=== PATIENT | male | born 1960 | race Caucasian/White ===

== ENCOUNTER 2017-02-05 22:39 | Observation (INO) | payer SELFPAY ==
[2017-02-05 22:39] VITALS: BMI 37.1
[2017-02-05] MEDS ORDERED: Sodium Chloride 0.9% 1,000 ML IV ONE (23:20)
[2017-02-05] MEDS ORDERED: Sodium Chloride 0.9% 1,000 ML ONE (23:24)
--- NOTE | 2017-02-05 23:28 | C.PDOC ---
History Of Present Illness Patient c/o sudden onset of left flank pain this afternoon. The pain radiates to his LLQ and testicle and is associated with urinary discomfort. He had history of similar pain in the past and was diagnosed with ? renal colic. He denies associated nausea or vomiting. His bowel movements have been normal. He has no fever or chills and had a normal appetite today. Time Seen by Provider: 02/05/17 23:17 Chief Complaint (Nursing): Abdominal Pain History Per: Patient History/Exam Limitations: no limitations Current Symptoms Are (Timing): Still Present Severity: Moderate Location Of Pain/Discomfort: LLQ Quality Of Discomfort: "Pain" Associated Symptoms: Back Pain (left flank). denies: Fever, Chills, Nausea, Vomiting, Diarrhea Exacerbating Factors: denies: Movement Past Medical History Vital Signs: Last Vital Signs Temp 97.5 F L 02/05/17 22:55 Pulse 80 02/05/17 22:55 Resp 20 02/05/17 22:55 BP 149/97 H 02/05/17 22:55 Pulse Ox 100 02/06/17 00:19 - Medical History PMH: No Chronic Diseases Surgical History: No Surg Hx Family History: States: Unknown Family Hx - Social History Hx Tobacco Use: No Hx Alcohol Use: Yes Hx Substance Use: No - Immunization History Hx Tetanus Toxoid Vaccination: No Hx Influenza Vaccination: No Hx Pneumococcal Vaccination: No Review Of Systems Except As Marked, All Systems Reviewed And Found Negative. Genitourinary: Positive for: Dysuria, Other (left flank pain) Physical Exam - Physical Exam Appears: In Acute Distress (appears uncomfortable) Skin: Normal Color, Warm, Dry Oral Mucosa: Moist Chest: Symmetrical Cardiovascular: Rhythm Regular Respiratory: Normal Breath Sounds Gastrointestinal/Abdominal: Soft, No Tenderness, No Distention, No Guarding, No Rebound Back: Normal Inspection, No CVA Tenderness Neurological/Psych: Oriented x3, Normal Speech, Normal Cognition ED Course And Treatment - Laboratory Results Result Diagrams: 02/05/17 23:24 02/05/17 23:24 Lab Interpretation: Abnormal (urine + RBC,) O2 Sat by Pulse Oximetry: 100 (room air ) Pulse Ox Interpretation: Normal - CT Scan/US CT ABDOMEN AND PELVIS W/O IV CONTRAST Other Rad Studies (CT/US): Read By Radiologist, Radiology Report Reviewed CT/US Interpretation: EXAM: CT Abdomen and Pelvis Without Intravenous Contrast. CLINICAL HISTORY: 56 years old, male; Pain; Abdominal pain; Generalized; Additional info: Abd pain. TECHNIQUE: Axial computed tomography images of the abdomen and pelvis without intravenous contrast. This. CT exam was performed using one or more of the following dose reduction techniques: automated. exposure control, adjustment of the mA and/or kV according to patient size, and/or use of iterative. reconstruction technique. Coronal and sagittal reformatted images were created and reviewed. COMPARISON: No relevant prior studies available. FINDINGS: Lower thorax: The bilateral lung bases are clear. ABDOMEN: Liver: The liver is enlarged, and demonstrates diffuse fatty infiltration. Gallbladder and bile ducts: A single calcified stone is identified within the gallbladder, which is. decompressed and otherwise unremarkable. No intra-extrahepatic biliary ductal dilation. Pancreas : Limited evaluation secondary to the lack of intravenous contrast. Spleen: No acute findings. Adrenals: No acute findings. Kidneys and ureters: Moderate left sided hydroureteronephrosis extending to the mid left ureter there. is 6 x 14 mm stone is identified. Multiple additional nonobstructing stones are detected bilaterally,. measuring 2 and 3 mm in size. Rounded foci of fluid attenuation are identified primarily within the left. kidney, statistically representing cysts. Moderate left-sided perinephric inflammatory change is. present. PELVIS: Bladder: No acute findings. Reproductive: No acute findings. Appendix: The air filled appendix is of normal-caliber (series 2, image 66; series 601, image 55). ABDOMEN and PELVIS: Stomach and bowel: No acute findings. Peritoneum: No acute findings. Lymph nodes: Limited evaluation without intravenous contrast. Vasculature: No aortic aneurysm. Bones: No acute fracture. IMPRESSION: Moderate left sided Reevaluation Time: 00:20 Reassessment Condition: Improved (after Toradol.) - Physician Consult Information Time Consulting Physician Contacted: 00:20 Outcome Of Conversation: Case discussed with Dr Engel and Dr Lopez. Patient to remain in the hospital tonight to prep for a stent tomorrow. Disposition - Disposition Disposition: HOSPITALIZED Disposition Time: 00:21 Condition: IMPROVED - POA Present On Arrival: None - Clinical Impression Clinical Impression: Renal colic on left side
[2017-02-05 23:29] LABS: BASO # 0.1 K/uL (0.0-0.2); BASO % 1.1 % (0.0-2.0); EOS # 0.3 K/uL (0.0-0.7); HEMATOCRIT 46.6 % (35.0-51.0); LYMPH # 1.9 K/uL (1.0-4.3); LYMPH % 19.5 % (20.0-40.0); MEAN CELL VOLUME 81.2 fL (80.0-94.0); MEAN CORPUSCULAR HEMOGLOBIN 26.8 pg (27.0-31.0); MEAN PLATELET VOLUME 7.6 fL (7.2-11.7); MONO # 0.7 K/uL (0.0-0.8); MONO % 6.8 % (0.0-10.0); NRBC % 0.1 % (0.0-2.0); RED CELL DISTRIBUTION WIDTH 13.7 % (11.5-14.5); WHITE BLOOD COUNT 9.6 K/uL (4.8-10.8)
[2017-02-05 23:36] LABS: CHLORIDE 99 mmol/L (98-107); POTASSIUM 4.3 mmol/L (3.6-5.2); SODIUM 134 mmol/L (132-148)
[2017-02-05 23:38] LABS: BILIRUBIN,TOTAL 0.6 mg/dL (0.2-1.3); CARBON DIOXIDE 25 mmol/L (22-30); GFR AFRICAN-AMERICAN > 60
[2017-02-05 23:39] LABS: ALB/GLOB RATIO 1.2 (1.0-2.1); ALKALINE PHOSPHATASE 77 U/L (38-126); ALT/SGPT 38 U/L (21-72); AST/SGOT 21 U/L (17-59); BLOOD UREA NITROGEN 17 mg/dL (9-20); CALCIUM 8.4 mg/dl (8.6-10.4); GLUCOSE,RANDOM 215 mg/dL (75-110); TOTAL PROTEIN 7.2 g/dL (6.3-8.3)
[2017-02-05 23:48] LABS: RBC URINE 39 /hpf (0-3); URINE BACTERIA OCC (<OCC); URINE BILIRUBIN NEGATIVE (NEGATIVE); URINE BLOOD 2+ (NEGATIVE); URINE CALCIUM OXALATE CRYSTALS RARE /hpf (<OCC); URINE COLOR Yellow (YELLOW); URINE GLUCOSE (UA) 3+ mg/dL (Normal); URINE KETONE NEGATIVE (NEGATIVE); URINE LEUKOCYTE ESTERASE NEG Leu/uL (Negative); URINE PROTEIN 1+ mg/dL (NEGATIVE); URINE UROBILINOGEN NORMAL mg/dL (0.2-1.0); WBC URINE 5 /hpf (0-5)
--- NOTE | 2017-02-05 23:58 | CT ---
EXAM: CT Abdomen and Pelvis Without Intravenous Contrast CLINICAL HISTORY: 56 years old, male; Pain; Abdominal pain; Generalized; Additional info: Abd pain TECHNIQUE: Axial computed tomography images of the abdomen and pelvis without intravenous contrast. This CT exam was performed using one or more of the following dose reduction techniques: automated exposure control, adjustment of the mA and/or kV according to patient size, and/or use of iterative reconstruction technique. Coronal and sagittal reformatted images were created and reviewed. COMPARISON: No relevant prior studies available. FINDINGS: Lower thorax: The bilateral lung bases are clear. ABDOMEN: Liver: The liver is enlarged, and demonstrates diffuse fatty infiltration. Gallbladder and bile ducts: A single calcified stone is identified within the gallbladder, which is decompressed and otherwise unremarkable. No intra-extrahepatic biliary ductal dilation. Pancreas: Limited evaluation secondary to the lack of intravenous contrast. Spleen: No acute findings. Adrenals: No acute findings. Kidneys and ureters: Moderate left sided hydroureteronephrosis extending to the mid left ureter there is 6 x 14 mm stone is identified. Multiple additional nonobstructing stones are detected bilaterally, measuring 2 and 3 mm in size. Rounded foci of fluid attenuation are identified primarily within the left kidney, statistically representing cysts. Moderate left-sided perinephric inflammatory change is present. PELVIS: Bladder: No acute findings. Reproductive: No acute findings. Appendix: The air filled appendix is of normal-caliber (series 2, image 66; series 601, image 55). ABDOMEN and PELVIS: Stomach and bowel: No acute findings. Peritoneum: No acute findings. Lymph nodes: Limited evaluation without intravenous contrast. Vasculature: No aortic aneurysm. Bones: No acute fracture. IMPRESSION: Moderate left sided hydroureteronephrosis extending to a 6 x 14 mm stone in the mid left ureter, as detailed above.
--- NOTE | 2017-02-06 00:17 | CP.PCM.HP ---
History of Present Illness - History of Present Illness History of Present Illness: CC: Left sided abdominal pain HPI: 56 year old male PMHx nephrolithiasis and DM2 presenting with LLQ abdominal pain radiating to his testicles and back that started the afternoon of admission. Patient has had 2 prior episodes of nephrolithais- one in 2013 in [place] for which he was hospitalized and treated with medications, and one 4 days ago for which he was sent home and pain resolved. Patient reports the pain was 10/10 and a burning pain and "hard pain" for which he tried ASA which did not help. He denied any alleviating/exacerbating factors. Patient denied any urinary complaints and denied hematuria, dysuria, burning on urination. He did admit to nausea and two episodes of nonbloody nonblious emesis which was yellow in color with food contents. Patient states the pain is better when I saw him and rated it 5/10 after receiving toradol in the ER. He denied any bowel/ bladder complaints. Patient denied any fever, chills, headache, dizziness, weakness, change in vision/jearing, chest pain, palpitations, SOB, cough, bowel/ bladder complaints, pain /swelling in legs bilaterally, rash, bruising, bleeding , recent travel, recent sickness, weight changes, appetite changes. 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 Toradol for pain and NS bolus. UA 2+ blood, 1+ protein, 3+ glucose, 39 RBC, +caclium oxalate crystal. Labs drawn. Present on Admission - Present on Admission Any Indicators Present on Admission: Yes History of Uncontrolled Diabetes: Yes Review of Systems - Constitutional Constitutional: As Per HPI. absent: Chills, Fever, Headache, Weight Gain, Weight Loss, Weakness - EENT Eyes: As Per HPI. absent: Change in Vision Ears: As Per HPI. absent: Tinnitus, Dizziness Nose/Mouth/Throat: As Per HPI. absent: Nasal Discharge, Sore Throat - Cardiovascular Cardiovascular: As Per HPI. absent: Chest Pain, Diaphoresis, Dyspnea, Dyspnea on Exertion, Edema, Leg Edema, Pedal Edema - Respiratory Respiratory: As Per HPI. absent: Cough, Dyspnea, Dyspnea on Exertion, Chest Congestion - Gastrointestinal Gastrointestinal: As Per HPI, Abdominal Pain, Nausea, Vomiting (x 2). absent: Constipation, Diarrhea, Dysphagia, Heartburn, Hematemesis, Hematochezia, Melena - Genitourinary Genitourinary: As Per HPI, Flank Pain (left sided), Hx Renal/Bladder Calculi. absent: Change in Urinary Stream, Difficulty Urinating, Dysuria, Hematuria, Pyuria, Nocturia, Urinary Incontinence, Urinary Frequency, Urinary Urgency, Freq UTI, Hx /Renal Surgery - Musculoskeletal Musculoskeletal: As Per HPI, Back Pain. absent: Joint Swelling, Muscle Cramps, Numbness, Tingling - Integumentary Integumentary: As Per HPI. absent: Dry Skin, Rash - Neurological Neurological: As Per HPI. absent: Dizziness, Numbness, Headaches, Tingling, Weakness - Psychiatric Psychiatric: As Per HPI. absent: Anxiety, Depression - Endocrine Endocrine: As Per HPI. absent: Palpitations, Polydipsia, Polyphagia, Polyuria - Hematologic/Lymphatic Hematologic: As Per HPI. absent: Easy Bleeding, Easy Bruising, Lymphadenopathy Past Patient History - Infectious Disease Hx of Infectious Diseases: None - Past Social History Smoking Status: Heavy Smoker > 10 Cigarettes Daily - ENDOCRINE/METABOLIC Hx Diabetes Mellitus Type 1: Yes - PSYCHIATRIC Hx Substance Use: No - ANESTHESIA Hx Anesthesia: No Meds Allergies/Adverse Reactions: Allergies Allergy/AdvReac Type Severity Reaction Status Date / Time No Known Allergies Allergy Verified 09/28/15 18:18 Physical Exam - Constitutional Appears: Non-toxic, No Acute Distress - Head Exam Head Exam: ATRAUMATIC, NORMAL INSPECTION, NORMOCEPHALIC - Eye Exam Eye Exam: EOMI, Normal appearance, PERRL. absent: Conjunctival injection, Scleral icterus Pupil Exam: NORMAL ACCOMODATION - ENT Exam ENT Exam: Mucous Membranes Moist - Neck Exam Neck exam: Positive for: Normal Inspection. Negative for: Lymphadenopathy, Tenderness, Thyromegaly - Respiratory Exam Respiratory Exam: Decreased Breath Sounds (secondary to body habitus), Clear to Auscultation Bilateral, NORMAL BREATHING PATTERN. absent: Accessory Muscle Use , Prolonged Expiratory Phase, Rales, Rhonchi, Wheezes, Respiratory Distress - Cardiovascular Exam Cardiovascular Exam: REGULAR RHYTHM, RRR, +S1, +S2. absent: Systolic Murmur - GI/Abdominal Exam GI & Abdominal Exam: Normal Bowel Sounds, Soft, Tenderness (L > R to palpation) . absent: Diminished Bowel Sounds, Firm, Rigid - Rectal Exam Rectal Exam: Deferred - Extremities Exam Extremities exam: Positive for: normal capillary refill, normal inspection, pedal edema (trace b/l), pedal pulses present. Negative for: tenderness - Back Exam Back exam: CVA tenderness (L), CVA tenderness (R) (L > R), NORMAL INSPECTION, tenderness (LBP L > R). absent: rash noted - Neurological Exam Neurological exam: Alert, CN II-XII Intact, Oriented x3 - Psychiatric Exam Psychiatric exam: Normal Affect, Normal Mood - Skin Skin Exam: Dry, Intact, Normal Color, Warm Results - Vital Signs Recent Vital Signs: Last Vital Signs Temp 97.5 F L 02/05/17 22:55 Pulse 80 02/05/17 22:55 Resp 20 02/05/17 22:55 BP 149/97 H 02/05/17 22:55 Pulse Ox 100 02/06/17 00:14 - Labs Result Diagrams: 02/05/17 23:24 02/05/17 23:24 Labs: Laboratory Results - last 24 hr 02/05/17 02/05/17 02/05/17 23:24 23:24 23:24 WBC 9.6 RBC 5.73 Hgb 15.4 Hct 46.6 MCV 81.2 MCH 26.8 L MCHC 33.0 RDW 13.7 Plt Count 264 MPV 7.6 Neut % (Auto) 69.6 Lymph % (Auto) 19.5 L [place] % (Auto) 6.8 Eos % (Auto) 3.0 Baso % (Auto) 1.1 Neut # 6.7 Lymph # 1.9 [place] # 0.7 Eos # 0.3 Baso # 0.1 Sodium 134 Potassium 4.3 Chloride 99 Carbon Dioxide 25 Anion Gap 15 BUN 17 Creatinine 1.1 Est GFR ( Amer) > 60 Est GFR (Non-Af Amer) > 60 Random Glucose 215 H Calcium 8.4 L Total Bilirubin 0.6 AST 21 ALT 38 Alkaline Phosphatase 77 Total Protein 7.2 Albumin 3.9 Globulin 3.3 Albumin/Globulin Ratio 1.2 Urine Color Yellow Urine Clarity Hazy Urine pH 5.0 Ur Specific [place] 1.025 Urine Protein 1+ H Urine Glucose (UA) 3+ H Urine Ketones Negative Urine Blood 2+ H Urine Nitrate Negative Urine Bilirubin Negative Urine Urobilinogen Normal Ur Leukocyte Esterase Neg Urine WBC (Auto) 5 Urine RBC (Auto) 39 H Ur Squamous Epith Cells 1 Calcium Oxalate Crystal Rare Urine Bacteria Occ H Assessment & Plan - Assessment and Plan (Free Text) Assessment: 56 year old male PMHx nephrolithiasis and DM2 presenting with LLQ abdominal pain radiating to his testicles and back that started the afternoon of admission Plan: Nephrolithiasis -CT abd/pelvis showing moderate L sided hydroureternoephrosis extending to a 6 x 14mm stone in mid left ureter. -UA 2+ blood, 1+ protein, 3+ glucose, 39 RBC, +caclium oxalate crystal -NS @ 150cc/hr -Rocephin 1gm IVPB daily -Flomax 0.4mg po daily -f/u AM labs -EKG NSR @ 69bpm -f/u CXR for preop clearance -strain urine for calculus PRN -NPO for possible OR in the AM -Urology: Dr. Lopez Hx of DM2 -Accucheck ACHS -hold RISS as patient is NPO -f/u HgbA1c -f/u lipid panel PPX -SCDs -Protonix 40mg ivp daily -hold VTE ppx for possible OR in the AM -NPO Plan discussed with Dr. Toro Izaguirre PGY1
[2017-02-06] MEDS ORDERED: Sodium Chloride 0.9% 1,000 ML IV SCH (01:30)
[2017-02-06] MEDS ORDERED: cefTRIAXone IV 1 gm in Dextros 50 ML IVPB ONE (01:44)
[2017-02-06] MEDS ORDERED: Sodium Chloride 0.9% 1,000 ML ONE (01:44)
[2017-02-06] MEDS ORDERED: (Novolog) Insulin Aspart, Recombinant 100 u/ml 10 ml vial SC SCH (07:30)
[2017-02-06 07:33] LABS: BASO # 0.1 K/uL (0.0-0.2); BASO % 0.8 % (0.0-2.0); EOS # 0.3 K/uL (0.0-0.7); EOS % 3.6 % (0.0-4.0); LYMPH # 2.5 K/uL (1.0-4.3); LYMPH % 29.9 % (20.0-40.0); MEAN CELL VOLUME 80.6 fL (80.0-94.0); MEAN CORPUSCULAR HEMOGLOBIN 27.2 pg (27.0-31.0); MEAN CORPUSCULAR HGB CONC 33.8 g/dL (33.0-37.0); MEAN PLATELET VOLUME 7.7 fL (7.2-11.7); MONO # 0.7 K/uL (0.0-0.8); MONO % 8.6 % (0.0-10.0); RED CELL DISTRIBUTION WIDTH 13.4 % (11.5-14.5); WHITE BLOOD COUNT 8.5 K/uL (4.8-10.8)
[2017-02-06 08:00] LABS: CHLORIDE 102 mmol/L (98-107); POTASSIUM 4.1 mmol/L (3.6-5.2); SODIUM 136 mmol/L (132-148)
[2017-02-06 08:02] LABS: ALB/GLOB RATIO 1.1 (1.0-2.1); AST/SGOT 19 U/L (17-59); BILIRUBIN,TOTAL 0.6 mg/dL (0.2-1.3); BLOOD UREA NITROGEN 21 mg/dL (9-20); CARBON DIOXIDE 25 mmol/L (22-30); CHOLESTEROL 203 mg/dL (0-199); GFR AFRICAN-AMERICAN > 60
[2017-02-06 08:03] LABS: ALKALINE PHOSPHATASE 60 U/L (38-126); ALT/SGPT 31 U/L (21-72); CALCIUM 7.5 mg/dl (8.6-10.4); GLUCOSE,RANDOM 136 mg/dL (75-110); MAGNESIUM 1.8 mg/dL (1.6-2.3); PHOSPHOROUS 3.2 mg/dL (2.5-4.5)
--- NOTE | 2017-02-06 09:11 | RAD ---
HISTORY: preop COMPARISON: 08/20/2015 TECHNIQUE: Chest PA and lateral FINDINGS: LUNGS: No active pulmonary disease. PLEURA: No significant pleural effusion identified. No pneumothorax apparent. CARDIOVASCULAR: Normal. OSSEOUS STRUCTURES: No significant abnormalities. VISUALIZED UPPER ABDOMEN: Normal. OTHER FINDINGS: None. IMPRESSION: No active disease.
--- NOTE | 2017-02-06 12:36 | CP.PCM.PN ---
Addendum entered and electronically signed by Asmita Donnelly DO, DO 15:33: Patient low cardiac risk for procedure from medical standpoint. Addendum entered and electronically signed by Asmita Donnelly DO, DO 13:47: Patient scheduled for procedure with Dr. Lopez at 5pm Original Note: <Asmita Donnelly DO - Last Filed: 02/06/17 12:38> Subjective - Date & Time of Evaluation Date of Evaluation: 02/06/17 Time of Evaluation: 08:45 - Subjective Subjective: PGY1 Progress Note for Dr. Robertson Patient seen and examined. Interview conducted with video assistant business manager. Patient complaining of left sided low back/ groin pain. Patient states that 4 days ago he passed a brown colored stone in his urine and had hematuria at that time. Patient currently denies hematuria. Patient does admit to pain with urination. Objective - Vital Signs/Intake and Output Vital Signs (last 24 hours): Temp Pulse Resp BP Pulse Ox 98 F 79 20 148/90 98 02/06/17 09:43 02/06/17 09:43 02/06/17 09:43 02/06/17 09:43 02/06/17 09:43 - Medications Medications: Current Medications Sodium Chloride (Sodium Chloride 0.9%) 1,000 mls @ 150 mls/hr IV .Q6H40M [facility] Last Admin: 02/06/17 01:37 Dose: 150 mls/hr Ceftriaxone Sodium 1 gm/ (Sodium Chloride) 100 mls @ 100 mls/hr IVPB Q24H [facility] Last Admin: 02/06/17 01:48 Dose: 100 mls/hr Dextrose/Sodium Chloride (Dextrose 5%/0.9% Ns 1000 Ml) 1,000 mls @ 125 mls/hr IV .Q8H [facility] Insulin Human Regular (Novolin R) 0 unit SC ACHS JESSICA PRN Reason: Protocol Morphine Sulfate (Morphine) 2 mg IVP Q4 PRN PRN Reason: Pain, moderate (4-7) Last Admin: 02/06/17 10:26 Dose: 2 mg Ondansetron HCl (Zofran Inj) 4 mg IVP Q6H PRN PRN Reason: Nausea/Vomiting Pantoprazole Sodium (Protonix Inj) 40 mg IVP DAILY [facility] Last Admin: 02/06/17 10:26 Dose: 40 mg Tamsulosin HCl (Flomax) 0.4 mg PO DAILY [facility] - Labs Labs: 02/06/17 07:18 02/06/17 07:18 - Constitutional Appears: Non-toxic, No Acute Distress - Head Exam Head Exam: ATRAUMATIC, NORMOCEPHALIC - Eye Exam Eye Exam: EOMI - ENT Exam ENT Exam: Mucous Membranes Moist - Respiratory Exam Respiratory Exam: Clear to Ausculation Bilateral, NORMAL BREATHING PATTERN - Cardiovascular Exam Cardiovascular Exam: +S1, +S2 - GI/Abdominal Exam GI & Abdominal Exam: Soft, Normal Bowel Sounds. absent: Tenderness - Back Exam Back Exam: CVA tenderness (L) (left more tender than right, pain wraps around to left groin), CVA tenderness (R) - Neurological Exam Neurological Exam: Alert, Awake - Psychiatric Exam Psychiatric exam: Normal Affect - Skin Skin Exam: Warm Assessment and Plan - Assessment and Plan (Free Text) Assessment: Nephrolithiasis -CT abd/pelvis showing moderate L sided hydroureternoephrosis extending to a 6 x 14mm stone in mid left ureter. -UA 2+ blood, 1+ protein, 3+ glucose, 39 RBC, +caclium oxalate crystal -D5NS @ 125cc/hr -Rocephin 1gm IVPB daily -Flomax 0.4mg po daily -morphine 2mg IV q4 prn -EKG NSR @ 69bpm -CXR for preop clearance- no pleural effusion, no pneumothroax, no active disease -strain urine for calculus PRN -NPO for possible OR today -Urology: Dr. Lopez, help appreciated Hx of DM2 -Accucheck ACHS -ISS, holding home metformin 1000mg BID -HgbA1c 8.0 -lipid panel- Triglycerides 168, cholesterol 203, LDL 143, HDL 43 PPX -SCDs -Protonix 40mg ivp daily -hold VTE ppx for possible OR in the AM -NPO pending urology recommendations <Supa Robertson - Last Filed: 02/06/17 18:40> Objective - Vital Signs/Intake and Output Vital Signs (last 24 hours): Temp Pulse Resp BP Pulse Ox 97.5 F L 86 20 145/77 95 02/06/17 16:21 02/06/17 16:21 02/06/17 16:21 02/06/17 16:21 02/06/17 16:21 - Medications Medications: Current Medications Hydromorphone HCl (Dilaudid) 0.5 mg IVP Q5M PRN PRN Reason: Pain, moderate (4-7) Stop: 02/06/17 19:16 Ceftriaxone Sodium 1 gm/ (Sodium Chloride) 100 mls @ 100 mls/hr IVPB Q24H [facility] Last Admin: 02/06/17 01:48 Dose: 100 mls/hr Dextrose/Sodium Chloride (Dextrose 5%/0.9% Ns 1000 Ml) 1,000 mls @ 125 mls/hr IV .Q8H [facility] Last Admin: 02/06/17 18:23 Dose: Not Given Insulin Human Regular (Novolin R) 0 unit SC ACHS JESSICA PRN Reason: Protocol Last Admin: 02/06/17 18:22 Dose: Not Given Morphine Sulfate (Morphine) 2 mg IVP Q4 PRN PRN Reason: Pain, moderate (4-7) Last Admin: 02/06/17 10:26 Dose: 2 mg Ondansetron HCl (Zofran Inj) 4 mg IVP Q6H PRN PRN Reason: Nausea/Vomiting Pantoprazole Sodium (Protonix Inj) 40 mg IVP DAILY [facility] Last Admin: 02/06/17 10:26 Dose: 40 mg Tamsulosin HCl (Flomax) 0.4 mg PO DAILY [facility] Last Admin: 02/06/17 13:53 Dose: 0.4 mg - Labs Labs: 02/06/17 07:18 02/06/17 07:18 PT 11.5 SECONDS (9.7-12.2) 02/06/17 15:23 INR 1.0 02/06/17 15:23 APTT 29 SECONDS (21-34) 02/06/17 15:23 Attending/Attestation - Attestation I have personally seen and examined this patient.: Yes I have fully participated in the care of the patient.: Yes I have reviewed all pertinent clinical information, including history, physical exam and plan: Yes Notes (Text): 02/06/17 18:39 Patient was seen and examined at bedside with the resident Plan for urological procedure today for stone removal. I discussed the plan of care with the resident and agree with the above history and physical and assessment/plan by the resident.
[2017-02-06] MEDS: Dextrose 5%/0.9% NS 1,000 ML IV SCH ×2 (13:52→18:23)
[2017-02-06] MEDS: (Novolin R) Insulin Human Regular 100 units/ml vial SC SCH ×3 (14:19→22:25)
[2017-02-06] MEDS ORDERED: HYDROmorphone 0.5 mg/0.5 ml ISec IVP PRN (17:15)
[2017-02-06] MEDS ORDERED: Iohexol 240 (50 ml) ONE (17:57)
[2017-02-06] MEDS ORDERED: Ciprofloxacin 400mg/200ml D5W 400 MG/200 ML BAG IVPB ONE (17:57)
[2017-02-06] MEDS ORDERED: Propofol 10 mg/ml Inj (20 ML) ONE (17:58)
[2017-02-06] MEDS ORDERED: Midazolam 2 MG/2 ML VIAL ONE (17:58)
[2017-02-06] MEDS: Lactated Ringer's 1,000 ML IV ONE ×2 (18:00→18:34)
[2017-02-07] MEDS: Dextrose 5%/0.9% NS 1,000 ML IV SCH (00:18)
[2017-02-07 00:33] VITALS: RESP 20
[2017-02-07 07:46] LABS: BASO # 0.1 K/uL (0.0-0.2); BASO % 0.9 % (0.0-2.0); EOS # 0.2 K/uL (0.0-0.7); EOS % 2.5 % (0.0-4.0); HEMATOCRIT 41.2 % (35.0-51.0); LYMPH # 1.6 K/uL (1.0-4.3); LYMPH % 21.6 % (20.0-40.0); MEAN CELL VOLUME 80.4 fL (80.0-94.0); MEAN CORPUSCULAR HEMOGLOBIN 27.6 pg (27.0-31.0); MEAN CORPUSCULAR HGB CONC 34.4 g/dL (33.0-37.0); MEAN PLATELET VOLUME 7.5 fL (7.2-11.7); MONO # 0.6 K/uL (0.0-0.8); RED CELL DISTRIBUTION WIDTH 13.5 % (11.5-14.5); WHITE BLOOD COUNT 7.6 K/uL (4.8-10.8)
[2017-02-07 07:47] VITALS: BP 122/77; PULSE 95; TEMP 97.8; O2SAT 94
[2017-02-07 07:51] LABS: CHLORIDE 101 mmol/L (98-107); POTASSIUM 4.2 mmol/L (3.6-5.2); SODIUM 137 mmol/L (132-148)
[2017-02-07 07:53] LABS: BILIRUBIN,TOTAL 0.7 mg/dL (0.2-1.3); GFR AFRICAN-AMERICAN > 60
[2017-02-07 07:54] LABS: ALKALINE PHOSPHATASE 48 U/L (38-126); ALT/SGPT 29 U/L (21-72); AST/SGOT 16 U/L (17-59); BLOOD UREA NITROGEN 14 mg/dL (9-20); CARBON DIOXIDE 27 mmol/L (22-30); GLUCOSE,RANDOM 174 mg/dL (75-110); TOTAL PROTEIN 6.2 g/dL (6.3-8.3)
[2017-02-07 07:55] LABS: CALCIUM 7.6 mg/dl (8.6-10.4)
[2017-02-07] MEDS: (Novolin R) Insulin Human Regular 100 units/ml vial SC SCH ×2 (08:16→11:30)
--- NOTE | 2017-02-07 12:06 | CARD ---
APPROVED REPORT EKG Measurement Heart [id number] <Conclusion> Normal sinus rhythm Low voltage QRS Borderline ECG
--- NOTE | 2017-02-07 14:05 | CON ---
DATE: 02/07/2017 This 56-year-old male was admitted with left renal colic. CAT scan revealed obstructing left uretera l calculus in the mid ureter. The patient was brought to the OR, prepped and draped after general an esthesia given. A #21 cystourethroscope was introduced into the bladder. A 0.035 wire was passed in to the left orifice up to the kidney. Double-J stent was then placed over the wire. The wire was re moved. There was good placement of the stent. The patient tolerated the procedure well, left the OR in good condition. Bk Lopez MD cc: [id number] TT: 02/07/2017 14:04:43 Confirmation # [id number] Dictation # [id number] dn
--- NOTE | 2017-02-07 17:48 | CP.PCM.DIS ---
<Cony ARREOLAAsmita K - Last Filed: 02/07/17 17:48> Provider - Provider Date of Admission: 02/06/17 00:22 Attending physician: Supa Robertson MD Consults: Dr. Lopez Time Spent in preparation of Discharge (in minutes): 35 Diagnosis - Discharge Diagnosis (1) Renal colic on left side Status: Acute Comment: Patient had 6 x 14mm stone in left ureter. Patient had ureter stent placed by Dr. Lopez on 02/06/17 and will follow up with Dr. Lopez on 02/10/17. (2) Diabetes Status: Chronic Comment: Patient had A1c of 8.0 and needs to follow up with the [facility] for adjustment of medications. Hospital Course - Lab Results Lab Results: Most Recent Lab Values WBC 7.6 K/uL (4.8-10.8) 02/07/17 07:28 RBC 5.13 Mil/uL (4.40-5.90) 02/07/17 07:28 Hgb 14.2 g/dL (12.0-18.0) 02/07/17 07:28 Hct 41.2 % (35.0-51.0) 02/07/17 07:28 MCV 80.4 fL (80.0-94.0) 02/07/17 07:28 MCH 27.6 pg (27.0-31.0) 02/07/17 07:28 MCHC 34.4 g/dL (33.0-37.0) 02/07/17 07:28 RDW 13.5 % (11.5-14.5) 02/07/17 07:28 Plt Count 233 K/uL (130-400) 02/07/17 07:28 MPV 7.5 fL (7.2-11.7) 02/07/17 07:28 Neut % (Auto) 67.0 % (50.0-75.0) 02/07/17 07:28 Lymph % (Auto) 21.6 % (20.0-40.0) 02/07/17 07:28 [place] % (Auto) 8.0 % (0.0-10.0) 02/07/17 07:28 Eos % (Auto) 2.5 % (0.0-4.0) 02/07/17 07:28 Baso % (Auto) 0.9 % (0.0-2.0) 02/07/17 07:28 Neut # 5.1 K/uL (1.8-7.0) 02/07/17 07:28 Lymph # 1.6 K/uL (1.0-4.3) 02/07/17 07:28 [place] # 0.6 K/uL (0.0-0.8) 02/07/17 07:28 Eos # 0.2 K/uL (0.0-0.7) 02/07/17 07:28 Baso # 0.1 K/uL (0.0-0.2) 02/07/17 07:28 PT 11.5 SECONDS (9.7-12.2) 02/06/17 15:23 INR 1.0 02/06/17 15:23 APTT 29 SECONDS (21-34) 02/06/17 15:23 Sodium 137 mmol/L (132-148) 02/07/17 07:28 Potassium 4.2 mmol/L (3.6-5.2) 02/07/17 07:28 Chloride 101 mmol/L (98-107) 02/07/17 07:28 Carbon Dioxide 27 mmol/L (22-30) 02/07/17 07:28 Anion Gap 13 (10-20) 02/07/17 07:28 BUN 14 mg/dL (9-20) 02/07/17 07:28 Creatinine 1.1 MG/DL (0.8-1.5) 02/07/17 07:28 Est GFR ( Amer) > 60 02/07/17 07:28 Est GFR (Non-Af Amer) > 60 02/07/17 07:28 POC Glucose (mg/dL) 242 mg/dL (65-110) H 02/07/17 10:49 Random Glucose 174 mg/dL (75-110) H 02/07/17 07:28 Hemoglobin A1c 8.0 % (4.2-6.5) H 02/06/17 07:18 Calcium 7.6 mg/dl (8.6-10.4) L 02/07/17 07:28 Phosphorus 3.2 mg/dL (2.5-4.5) 02/06/17 07:18 Magnesium 1.8 mg/dL (1.6-2.3) 02/06/17 07:18 Total Bilirubin 0.7 mg/dL (0.2-1.3) 02/07/17 07:28 AST 16 U/L (17-59) L 02/07/17 07:28 ALT 29 U/L (21-72) 02/07/17 07:28 Alkaline Phosphatase 48 U/L (38-126) 02/07/17 07:28 Total Protein 6.2 g/dL (6.3-8.3) L 02/07/17 07:28 Albumin 3.1 g/dL (3.5-5.0) L 02/07/17 07:28 Globulin 3.1 gm/dL (2.2-3.9) 02/07/17 07:28 Albumin/Globulin Ratio 1.0 (1.0-2.1) 02/07/17 07:28 Triglycerides 168 mg/dL (0-149) H D 02/06/17 07:18 Cholesterol 203 mg/dL (0-199) H 02/06/17 07:18 LDL Cholesterol Direct 143 mg/dL (0-129) H 02/06/17 07:18 HDL Cholesterol 43 mg/dL (30-70) 02/06/17 07:18 Urine Color Yellow (YELLOW) 02/05/17 23:24 Urine Clarity Hazy (Clear) 02/05/17 23:24 Urine pH 5.0 (5.0-8.0) 02/05/17 23:24 Ur Specific [place] 1.025 (1.003-1.030) 02/05/17 23:24 Urine Protein 1+ mg/dL (NEGATIVE) H 02/05/17 23:24 Urine Glucose (UA) 3+ mg/dL (Normal) H 02/05/17 23:24 Urine Ketones Negative mg/dL (NEGATIVE) 02/05/17 23:24 Urine Blood 2+ (NEGATIVE) H 02/05/17 23:24 Urine Nitrate Negative (NEGATIVE) 02/05/17 23:24 Urine Bilirubin Negative (NEGATIVE) 02/05/17 23:24 Urine Urobilinogen Normal mg/dL (0.2-1.0) 02/05/17 23:24 Ur Leukocyte Esterase Neg Jewel/uL (Negative) 02/05/17 23:24 Urine WBC (Auto) 5 /hpf (0-5) 02/05/17 23:24 Urine RBC (Auto) 39 /hpf (0-3) H 02/05/17 23:24 Ur Squamous Epith Cells 1 /hpf (0-5) 02/05/17 23:24 Calcium Oxalate Crystal Rare /hpf (<OCC) 02/05/17 23:24 Urine Bacteria Occ (<OCC) H 02/05/17 23:24 - Hospital Course Hospital Course: On Admission: 56 year old male PMHx nephrolithiasis and DM2 presenting with LLQ abdominal pain radiating to his testicles and back that started the afternoon of admission. Patient has had 2 prior episodes of nephrolithais- one in 2013 in [place] for which he was hospitalized and treated with medications, and one 4 days ago for which he was sent home and pain resolved. Patient reports the pain was 10/10 and a burning pain and "hard pain" for which he tried ASA which did not help. He denied any alleviating/exacerbating factors. Patient denied any urinary complaints and denied hematuria, dysuria, burning on urination. He did admit to nausea and two episodes of nonbloody nonblious emesis which was yellow in color with food contents. Patient states the pain is better when I saw him and rated it 5/10 after receiving toradol in the ER. He denied any bowel/ bladder complaints. Patient denied any fever, chills, headache, dizziness, weakness, change in vision/jearing, chest pain, palpitations, SOB, cough, bowel/ bladder complaints, pain /swelling in legs bilaterally, rash, bruising, bleeding , recent travel, recent sickness, weight changes, appetite changes. During Hospitalization: CT abd/pelvis showing moderate L sided hydroureternoephrosis extending to a 6 x 14mm stone in mid left ureter. -UA 2+ blood, 1+ protein, 3+ glucose, 39 RBC, +caclium oxalate crystal EKG NSR @ 69bpm -CXR for preop clearance- no pleural effusion, no pneumothroax, no active disease Patient had cystoscopy with left ureteral stenting with Dr. Lopez. Patient reported resolution of pain following the procedure. Patient had A1c of 8.0 and needs to follow up with the [facility] for adjustment of medications. On Discharge: Patient is stable for discharge per Dr. Robertson. Patient is to follow up with Dr. Lopez on February 10 at 12PM. Patient is to resume home metformin on discharge. Patient is to follow up with the [facility] within one week of discharge for management of his diabetes as his Hgb A1c is 8.0 and will need better control. Patient is being discharged with the following new medications per Dr. Lopez: macrobid 1 tab twice a day for 10 days and vicodin 5/300mg on tab every 6 hours as needed for pain. Patient should return to the ER if his symptoms reoccur or worsen. This was explained to the patient and his family who understand and agree. Discharge Exam - Head Exam Head Exam: ATRAUMATIC, NORMOCEPHALIC - Eye Exam Eye Exam: EOMI - ENT Exam ENT Exam: Mucous Membranes Moist - Respiratory Exam Respiratory Exam: Clear to PA & Lateral, NORMAL BREATHING PATTERN - Cardiovascular Exam Cardiovascular Exam: +S1, +S2 - GI/Abdominal Exam GI & Abdominal Exam: Normal Bowel Sounds, Soft. absent: Tenderness - Extremities Exam Extremities exam: normal inspection - Back Exam Back exam: absent: CVA tenderness (L), CVA tenderness (R) - Neurological Exam Neurological exam: Alert - Psychiatric Exam Psychiatric exam: Normal Affect Discharge Plan - Follow Up Plan Condition: IMPROVED Disposition: HOME/ ROUTINE Instructions: Hydrocodone/Acetaminophen (By mouth), Nitrofurantoin Combination (By mouth), How to Stop Smoking (DC), Ankle Fracture (DC), Renal Colic (GEN) Additional Instructions: Patient is stable for discharge per Dr. Robertson. Patient is to follow up with Dr. Lopez on February 10 at 12PM. Patient is to resume home metformin on discharge. Patient is to follow up with the [facility] within one week of discharge for management of his diabetes as his Hgb A1c is 8.0 and will need better control. Patient is being discharged with the following new medications per Dr. Lopez: macrobid 1 tab twice a day for 10 days and vicodin 5/300mg on tab every 6 hours as needed for pain. Patient should return to the ER if his symptoms reoccur or worsen. This was explained to the patient and his family who understand and agree. Referrals: [facility] [Outside] John Lopez MD [Staff Provider] - 02/10/17 12:00 pm <Supa Robertson - Last Filed: 02/08/17 07:41> Provider - Provider Date of Admission: 02/06/17 00:22 Attending physician: Supa Robertson MD Hospital Course - Lab Results Lab Results: Most Recent Lab Values WBC 7.6 K/uL (4.8-10.8) 02/07/17 07:28 RBC 5.13 Mil/uL (4.40-5.90) 02/07/17 07:28 Hgb 14.2 g/dL (12.0-18.0) 02/07/17 07:28 Hct 41.2 % (35.0-51.0) 02/07/17 07:28 MCV 80.4 fL (80.0-94.0) 02/07/17 07:28 MCH 27.6 pg (27.0-31.0) 02/07/17 07:28 MCHC 34.4 g/dL (33.0-37.0) 02/07/17 07:28 RDW 13.5 % (11.5-14.5) 02/07/17 07:28 Plt Count 233 K/uL (130-400) 02/07/17 07:28 MPV 7.5 fL (7.2-11.7) 02/07/17 07:28 Neut % (Auto) 67.0 % (50.0-75.0) 02/07/17 07:28 Lymph % (Auto) 21.6 % (20.0-40.0) 02/07/17 07:28 [place] % (Auto) 8.0 % (0.0-10.0) 02/07/17 07:28 Eos % (Auto) 2.5 % (0.0-4.0) 02/07/17 07:28 Baso % (Auto) 0.9 % (0.0-2.0) 02/07/17 07:28 Neut # 5.1 K/uL (1.8-7.0) 02/07/17 07:28 Lymph # 1.6 K/uL (1.0-4.3) 02/07/17 07:28 [place] # 0.6 K/uL (0.0-0.8) 02/07/17 07:28 Eos # 0.2 K/uL (0.0-0.7) 02/07/17 07:28 Baso # 0.1 K/uL (0.0-0.2) 02/07/17 07:28 PT 11.5 SECONDS (9.7-12.2) 02/06/17 15:23 INR 1.0 02/06/17 15:23 APTT 29 SECONDS (21-34) 02/06/17 15:23 Sodium 137 mmol/L (132-148) 02/07/17 07:28 Potassium 4.2 mmol/L (3.6-5.2) 02/07/17 07:28 Chloride 101 mmol/L (98-107) 02/07/17 07:28 Carbon Dioxide 27 mmol/L (22-30) 02/07/17 07:28 Anion Gap 13 (10-20) 02/07/17 07:28 BUN 14 mg/dL (9-20) 02/07/17 07:28 Creatinine 1.1 MG/DL (0.8-1.5) 02/07/17 07:28 Est GFR ( Amer) > 60 02/07/17 07:28 Est GFR (Non-Af Amer) > 60 02/07/17 07:28 POC Glucose (mg/dL) 242 mg/dL (65-110) H 02/07/17 10:49 Random Glucose 174 mg/dL (75-110) H 02/07/17 07:28 Hemoglobin A1c 8.0 % (4.2-6.5) H 02/06/17 07:18 Calcium 7.6 mg/dl (8.6-10.4) L 02/07/17 07:28 Phosphorus 3.2 mg/dL (2.5-4.5) 02/06/17 07:18 Magnesium 1.8 mg/dL (1.6-2.3) 02/06/17 07:18 Total Bilirubin 0.7 mg/dL (0.2-1.3) 02/07/17 07:28 AST 16 U/L (17-59) L 02/07/17 07:28 ALT 29 U/L (21-72) 02/07/17 07:28 Alkaline Phosphatase 48 U/L (38-126) 02/07/17 07:28 Total Protein 6.2 g/dL (6.3-8.3) L 02/07/17 07:28 Albumin 3.1 g/dL (3.5-5.0) L 02/07/17 07:28 Globulin 3.1 gm/dL (2.2-3.9) 02/07/17 07:28 Albumin/Globulin Ratio 1.0 (1.0-2.1) 02/07/17 07:28 Triglycerides 168 mg/dL (0-149) H D 02/06/17 07:18 Cholesterol 203 mg/dL (0-199) H 02/06/17 07:18 LDL Cholesterol Direct 143 mg/dL (0-129) H 02/06/17 07:18 HDL Cholesterol 43 mg/dL (30-70) 02/06/17 07:18 Urine Color Yellow (YELLOW) 02/05/17 23:24 Urine Clarity Hazy (Clear) 02/05/17 23:24 Urine pH 5.0 (5.0-8.0) 02/05/17 23:24 Ur Specific [place] 1.025 (1.003-1.030) 02/05/17 23:24 Urine Protein 1+ mg/dL (NEGATIVE) H 02/05/17 23:24 Urine Glucose (UA) 3+ mg/dL (Normal) H 02/05/17 23:24 Urine Ketones Negative mg/dL (NEGATIVE) 02/05/17 23:24 Urine Blood 2+ (NEGATIVE) H 02/05/17 23:24 Urine Nitrate Negative (NEGATIVE) 02/05/17 23:24 Urine Bilirubin Negative (NEGATIVE) 02/05/17 23:24 Urine Urobilinogen Normal mg/dL (0.2-1.0) 02/05/17 23:24 Ur Leukocyte Esterase Neg Jewel/uL (Negative) 02/05/17 23:24 Urine WBC (Auto) 5 /hpf (0-5) 02/05/17 23:24 Urine RBC (Auto) 39 /hpf (0-3) H 02/05/17 23:24 Ur Squamous Epith Cells 1 /hpf (0-5) 02/05/17 23:24 Calcium Oxalate Crystal Rare /hpf (<OCC) 02/05/17 23:24 Urine Bacteria Occ (<OCC) H 02/05/17 23:24 Attending/Attestation - Attestation I have personally seen and examined this patient.: Yes I have fully participated in the care of the patient.: Yes I have reviewed all pertinent clinical information, including history, physical exam and plan: Yes Notes (Text): 02/08/17 07:41 Patient was seen and examined at bedside with the resident He is feeling comfortable and denies any flank pain Patient is cleared for discharge by urology on oral antibiotic and on pain medication Patient will follow-up with the [facility] and also with urology I agree with the discharge note by the resident
--- NOTE | 2017-02-10 13:09 | PROCN ---
DATE: 02/06/2017 The patient admitted with a left obstructing ureteral calculus. The patient brought to the OR. The patient given general anesthesia. Cystoscopy was done with inser tion of a left ureteral wire into the kidney. Double J stent was then left over the wire and the wir e removed. The stent was in good position. The patient will be followed as an outpatient. Bk Lopez MD cc: [id number] TT: 02/10/2017 11:46:47 Confirmation # [id number] Dictation # [id number] jade
== END 2017-02-07 13:04 | disposition home or self-care (01) ==
LOC: C.ER 22:39 → C.9E 02-06 00:22 → INTOOBSV 02-06 00:22 → C.5T 02-06 01:50
PROVIDERS: ADMIT Internal Medicine; ATTEND Internal Medicine
DX: N20.0 Calculus of kidney (principal); E11.9 Type 2 diabetes mellitus without complications; Z79.4 Long term (current) use of insulin; Z68.36 Body mass index [BMI] 36.0-36.9, adult; F17.210 Nicotine dependence, cigarettes, uncomplicated; M65.9 Synovitis and tenosynovitis, unspecified
CPT/HCPCS: 36415; 52332; 71020; 74022; 74176; 80053; 80061; 81001; 82948; 83036; 83735; 84100; 85025; 85610; 85730; 93005; 96361; 96365; 96375; 99285; C1769; C2617; C9113; G0378; J0696; J0744; J1885; J2270; J7040; J7042; J7120

== ENCOUNTER 2017-02-24 08:51 | Day surgery (SDC) | payer OTHER ==
[2017-02-13 14:04] VITALS: BMI 36.5
[2017-02-24] MEDS ORDERED: Lidocaine 2% Jelly (Uro-Jet) ONE (11:10)
[2017-02-24] MEDS ORDERED: Ciprofloxacin 400mg/200ml D5W 400 MG/200 ML BAG IVPB ONE (11:10)
[2017-02-24] MEDS ORDERED: Lactated Ringer's 1,000 ML IV ONE (11:10)
[2017-02-24] MEDS ORDERED: Midazolam 2 MG/2 ML VIAL ONE (11:21)
[2017-02-24] MEDS ORDERED: Propofol 10 mg/ml Inj (20 ML) ONE (11:21)
[2017-02-24] MEDS: HYDROmorphone 0.5 mg/0.5 ml ISec IVP PRN ×2 (13:22→13:42)
[2017-02-24 15:18] VITALS: PULSE 80
[2017-02-24] MEDS ORDERED: Oxycodone/Acetaminophen 5/325 mg Tab ONE (15:59)
[2017-02-24] MEDS: Oxycodone/Acetaminophen 5/325 mg Tab PO STA ×2 (16:00→16:05)
[2017-02-24 17:35] VITALS: BP 120/70; RESP 20; TEMP 97.8; O2SAT 100
--- NOTE | 2017-02-25 14:59 | PROCN ---
DATE: 02/24/2017 The patient has obstructive left ureteral calculus. He was brought to the OR for cystourethroscopy l aser. The patient prepped and draped after general anesthesia given, placed in lithotomy position. The patient had previous stent insertion. A #21 cystourethroscope introduced via the stent, pulled t hrough the urethra, 3.5 wire was inserted into the left ureter. The stent removed using a ____ rigid ureteroscope. Alongside the wire the stone was engaged at 1/3 of the left ureter. Using laser lith otripsy the stone was broken up into multiple pieces. ____ could not be reached with the ureteroscop e however the calculus did not seem to be evident in that area on x-ray. The scope was then removed and the double J stent was then placed over the wire, the wire removed. Bk Lopez MD cc: [id number] TT: 02/25/2017 14:58:38 Confirmation # [id number] Dictation # [id number] matty
--- NOTE | 2017-02-26 18:02 | RAD ---
HISTORY: LT. URETERAL CALCULUS COMPARISON: 02/06/2017 FINDINGS: BOWEL: Normal bowel gas pattern. Left ureteral stent. Approximately 10 mm calculus seen alongside left ureteral stent at the junction proximal and middle thirds. Approximately 5 mm calculus lower pole left kidney. No other renal calculus identified. BONES: Normal. OTHER FINDINGS: None. IMPRESSION: 10 mm calculus seen alongside left ureteral stent. Approximately 5 mm calculus seen in lower left kidney.
--- NOTE | 2017-02-27 18:56 | RAD ---
PROCEDURE: Intraoperative fluoroscopy HISTORY: LT. URETERAL CALCULUS COMPARISON: Not available TECHNIQUE: Intraoperative fluoroscopy was provided for left ureteral stent placement. Total time of fluoroscopy was 41.2 seconds. FINDINGS: Six fluoroscopic spot films are submitted. Films are on file for review. IMPRESSION: Fluoroscopy provided.
== END 2017-02-24 17:20 | disposition home or self-care (01) ==
LOC: C.SDS 08:51
PROVIDERS: ATTEND Urology
DX: N20.2 Calculus of kidney with calculus of ureter (principal)
CPT/HCPCS: 50590; 74000; 76000; 82948; C1769; C2617; J0744; J1170; J7120

== ENCOUNTER 2017-03-17 10:55 | Day surgery (SDC) | payer OTHER ==
[2017-02-13 14:04] VITALS: BMI 36.5
[2017-03-17] MEDS ORDERED: Lactated Ringer's 500 ML IV ONE ×2 (13:40)
[2017-03-17] MEDS ORDERED: Lidocaine 2% Jelly (Uro-Jet) ONE (13:45)
[2017-03-17] MEDS ORDERED: Iohexol 240 (50 ml) ONE (13:45)
[2017-03-17] MEDS ORDERED: cefTRIAXone IV 1 gm in Dextros 0 ML IVPB ONE (13:45)
[2017-03-17] MEDS ORDERED: Ciprofloxacin 400mg/200ml D5W 400 MG/200 ML BAG IVPB ONE (14:03)
[2017-03-17] MEDS ORDERED: Propofol 10 mg/ml Inj (20 ML) ONE ×2 (14:23→14:34)
[2017-03-17] MEDS ORDERED: Lidocaine Hydrochloride 5 ML INJ ONE (14:24)
[2017-03-17] MEDS ORDERED: HYDROmorphone 0.5 mg/0.5 ml ISec IVP PRN (15:02)
[2017-03-17] MEDS ORDERED: HYDROmorphone 0.5 mg/0.5 ml ISec ONE (15:03)
[2017-03-17 15:20] VITALS: O2SAT 100
[2017-03-17 16:13] VITALS: BP 104/71
[2017-03-18 11:52] VITALS: PULSE 77; RESP 20; TEMP 97
--- NOTE | 2017-04-01 01:26 | OP ---
PROCEDURE DATE: 03/17/2017 DESCRIPTION OF PROCEDURE: The patient had previous cystourethroscopy with laser procedure. The patient now brought back to the OR for removal of the stent. The patient prepped and draped in usual manner. After general anesthesia given, #21 cystourethroscope was inserted into the bladder. Using a foreign body forceps, the stent was removed. The patient tolerated the procedure and left the OR in good condition. John Lopez MD
== END 2017-03-17 17:24 | disposition home or self-care (01) ==
LOC: C.SDS 10:55
PROVIDERS: ATTEND Urology
DX: N20.1 Calculus of ureter (principal)
CPT/HCPCS: 52310; 82948; J0744; J1170; J7120